=== PATIENT | female | born 1985 ===

== ENCOUNTER 2018-02-27 17:03 | Inpatient (IN) | payer MEDICARE, MEDICAID ==
[~2018-02-27] VITALS: Ht 154.9 cm; Wt 124.3 kg
[~2018-02-27 17:03] MED LIST: AMO500 PO; HYDR-2954 PO; PNV1COMB5
[2018-03-01] MEDS ORDERED: FAMOTIDINE(*) 20MG/50ML PREMIX 50 ML IVPB PRN (01:18)
[2018-03-01] MEDS ORDERED: OXYTOCIN 30 UNIT/D5LR 500 ML 500 ML IV PRN ×2 (01:18→10:28)
[2018-03-01] MEDS: LR(*) 1000 ML BAG 1,000 ML IV SCH ×2 (01:18→06:04)
[2018-03-01] MEDS ORDERED: LIDOCAINE 1% LOCAL 300 MG/30ML INJ PRN (01:20)
[2018-03-01] MEDS ORDERED: LIDOCAINE/SOD BICARB 8.4% SYR SC PRN (01:20)
[2018-03-01] MEDS ORDERED: METOCLOPRAMIDE 10 MG/2 ML SDV IVP PRN (01:20)
[2018-03-01] MEDS ORDERED: cefOXitin/DEX(*) 2GM/50ML PREM 50 ML IVPB PRN (01:20)
[2018-03-01] MEDS ORDERED: fentaNYL CITR 100 MCG/2 ML AMP IVP PRN (01:20)
[2018-03-01] MEDS ORDERED: FLUSH 10 ML SYR IVP PRN ×2 (01:20)
[2018-03-01] MEDS ORDERED: EPIDURAL KEYS XX PRN (01:23)
[2018-03-01] MEDS ORDERED: FENTANYL/ROPIVACAINE 100 ML BAG EPI PRN (01:25)
[2018-03-01] MEDS ORDERED: BUPIVACAINE 0.25% MPF INJ EPI PRN (01:25)
[2018-03-01] MEDS ORDERED: LIDO/EPI 2% MPF 1:200,000 20ML EPI PRN (01:25)
[2018-03-01] MEDS ORDERED: LIDOCAINE/PF 2% 200MG/10ML AMP 200 MG/10 ML AMPUL EPI PRN (01:25)
[2018-03-01] MEDS ORDERED: BUPIVACAINE 0.5% INJ 30ML VIAL EPI PRN (01:25)
[2018-03-01] MEDS ORDERED: fentaNYL CITR 100 MCG/2 ML AMP IT PRN (01:25)
[2018-03-01 01:56] LABS: PLATELET COUNT, AUTOMATED 276 K/uL (150-450)
--- NOTE | 2018-03-01 02:41 | Anesthesia OB Pre-Anes Eval ---
History of Present Illness Anesthesia Start Date: Mar 01, 2018 Anesthesia Start Time: 01:57 OB Anesthesia Diagnosis: gestational hypertension, spontaneous labor Current Complication: gestational hypertention, obesity Result Diagram: 03/01/18 0142 03/01/18 0142 Past Medical History Medical History: obesity Previous Anesthesia: general, epidural Attended Childbirth Classes?: No Hx Anesthesia Reactions: Yes Hx Family Anesthesia Reaction: Yes Past Complications: obesity Home Meds Reported Medications Pnv #116/Iron Fumarate/Fa/Dha (EXPECTA COMBO PACK) 1 Each Combo..pkg 02/20/18 [None] No Conflict Check 10/26/11 Allergies: Coded Allergies: acetaminophen (Verified Allergy, Unknown, 03/01/18) Anesthesia OB ROS Neurological: No migraines/headaches, No seizures, No neuropathy, No other ENT: Denies Tooth caps, Denies Loose teeth, Denies Chipped teeth, Denies Dentures, Denies Bridges, Denies Retainers, Denies Veneers, Denies Implants, Denies Tongue ring, Denies Other Pulmonary: No asthma, No smoker (pks/day/yrs), No other Airway Class: ll Cardiovascular ROS: No edema, No arrhythmia, No other ROS: No Herpes, No STD(s), No Liver Disease, No Renal Disease, No Other Endocrine ROS: No diabetes, No gestational diabetes, No thyroid disorder, No other Musculoskeletal ROS: No low back pain, No low back injury, No scoliosis, No other ASA Classification: 3 Assessment and Plan Anesthesia Plan: CURTIS SADLER CRNA Mar 01, 2018 02:40
--- NOTE | 2018-03-01 02:43 | Procedure Note ---
Anesthetic Placement Note Anesthesia Plan: CSE Permit for Anesthesia Signed: Yes Anesthesia Technique: Patient Sitting Anesthesia Prep: Chlorhexidine Interspace: L 3-4 Local Anesthetic: 1% Lidocaine, 25 Gauge Needle Amount Local - cc's: 3 Anesthesia Needle: 17g Touhshanel/Annamarieff Anesthesia Attempts: 1 (needle redirection x 1) Loss of Resistance: Normal Saline Depth of JULITO (cm): 6.5 Epidural Needle Placement: No CSF, No Blood, No Parasthesia Intrathecal Needle: 27 Gauge Pencan Cerebral Spinal Fluid: Yes, Clear Catheter Insertion (cm): 4.5 Catheter Type: Patino - Spring Wound Epidural Dressing: Tegaderm, Tape Anesthesia Tray: Lot Number ([id number]), Expiration Date (03/04/2019), Reference Number ([id number]) Anesthesia Medications: Intrathecal Dose: mcg Fentanyl (15 mcg), Time (211) Epidural Test Dose: 1.5 Lido/Epi (1:200,000), Dose - mL (5 mL incrementally), Time (213), Negative Epidural Loading Dose: 0.2% Ropivicaine, With Fentanyl 2mcg/ml, Dose - ml (5), Time (226) Epidural Infusion: 0.2% Ropivicaine, With Fentanyl 2mcg/ml, Start Time: (226) Epidural Pump Setting: Bolus Dose - mL (5), Lockout - Minutes (15), Maintenance Rate - mL/hr (6), Maximum per Hour - mL (21) Complications: None CURTIS ABREU CRNA Mar 01, 2018 02:43
[2018-03-01 03:27] VITALS: BP 146/73; Ht 154.9 cm; Wt 124.3 kg
--- NOTE | 2018-03-01 07:21 | Anesthesia Progress Note ---
Progress/Maintenance Anesthesia Note Date: Mar 01, 2018 Anesthesia Note Time: 07:10 Pain Intensity: 0 Pump: On Pump Rate (ML/HR): 6 Sensory Level: t10 Motor Level: Bending Knees-Bilateral Position: Right, Tilt CURTIS ABREU CRNA Mar 01, 2018 07:21
--- NOTE | 2018-03-01 08:38 | History & Physical ---
History of Present Illness Age of Patient: 32 : 4 Para or TPAL: 2 EDC per LMP: Mar 14, 2018 Estimated Gestational Age: 38.1 Chief Complaint Labor induction History of Present Illness Presents was scheduled labor induction secondary to chronic hypertension well controlled and history of preeclampsia on prior pregnancies. She presented ahead of time in spontaneous labor. This uncomplicated otherwise. A pos, GBS negative. Past Medical, Surgical, Family and Obstetric Histories reviewed. Please see ACOG chart. History Allergies: Coded Allergies: acetaminophen (Verified Allergy, Unknown, 03/01/18) Med Rec Home Meds Reported Medications Pnv #116/Iron Fumarate/Fa/Dha (EXPECTA COMBO PACK) 1 Each Combo..pkg 02/20/18 [None] No Conflict Check 10/26/11 Exam General Exam Vital Signs Vital Signs Date Time Temp Pulse Resp B/P (MAP) Pulse Ox O2 Delivery O2 Flow Rate FiO2 03/01/18 03:27 97.7 68 16 146/73 (97) Room Air General Apperance: Alert/Awake/No Acute Distress Neuro: No Gross deficits Eyes: Normal Extraocular Movement & Vison Cardiovascular: Regular Rate and Rhythm Respiratory: No Respiratory Distress Abdomen: Soft, Non-Tender, Non-Distended Integumentary: Skin Intact without Lesions or Rash Psychological: Alert & Oriented X3, Appropriate Mood & Affect Cervical Dialation: 8 Cervical Effacement (%): 100 Cervical Consistency: Soft Cervical Position: Anterior Station: -2 Presentation: Vertex Uterine Contraction Strength: Moderate Fetus Heart Tone Variabilty: Moderate FHT Accelerations: 15X15 FHT Category: I Medical Decision Making Data Points Result Diagram: 03/01/18 0142 03/01/18 014 VTE Prophylasis: Adult Deep Vein Thrombosis/Pulmonary: No Pharmacological Contraindicati: Pt at Low Risk for VTE Mechanical Contraindications: Pt at Low Risk for VTE Assessment and Plan UPHOLSTERY SEWER Plan: Routine Labor/Induct Care Problems: (1) Chronic hypertension affecting Assessment & Plan: No sign of preeclampsia currently. Continue to augment labor as needed. Expecting . (2) 38 weeks gestation of KEVIN VALVERDE MD Mar 01, 2018 08:38
[2018-03-01] MEDS ORDERED: TERBUTALINE SULF 1 MG/ML VIAL SUBQ PRN (10:30)
--- NOTE | 2018-03-01 10:50 | Anesthesia Progress Note ---
Progress/Maintenance Anesthesia Note Date: Mar 01, 2018 Anesthesia Note Time: 10:48 Pain Intensity: 0 Pump: On Pump Rate (ML/HR): 6 Sensory Level: t10 Motor Level: Bending Knees-Bilateral Dilatation: 9 Position: Left, Tilt Assessment and Plan Assessment: Pitocin recently started to augment labor. CURTIS ABREU CRNA Mar 01, 2018 10:50
[2018-03-01] MEDS ORDERED: BENZOCAINE 20% 60 ML BTL TP PRN (11:45)
[2018-03-01] MEDS ORDERED: MAGNESIUM HYDROXIDE* 30ML UDCP PO PRN (11:45)
[2018-03-01] MEDS ORDERED: HYDROmorphone HCL 2 MG TAB PO PRN (11:45)
[2018-03-01] MEDS ORDERED: GLYCERIN/WITCH HAZEL LEAF 1 PK TP PRN (11:45)
[2018-03-01] MEDS ORDERED: LANOLIN OINT 7 GM TUBE TP PRN (11:45)
[2018-03-01] MEDS ORDERED: HYDROCORTISONE 2.5% CR 30GM TB PR PRN (11:45)
--- NOTE | 2018-03-01 11:53 | OB Delivery Note ---
Delivery Note Vaginal Delivery Type: Spont. Vaginal Delivery Delivery Date: Mar 01, 2018 Delivery Time: 11:49 Estimated Gestational Age(wks): 38 Delivery Anesthesia: Epidural Sex: Male Infant Weight (gms): [address] Apgars: 1 Minute (9), 5 Minute (9) Repair Needed: Laceration, 1st Degree Estimated Blood Loss: 100 Notes: Pt complete and +2 upon arrival. Pt assembled in delivery position. Over next contraction with pushing, baby's head delivered in JAZ position over first degree laceration. Shoulders delivered spontaneously. Placenta delivered intact and spontaneous. Laceration repaired with 2-0 chromic without difficulty. No complications. [address] Drive in Attendence: No Copies to: KEVIN VALVERDE MD ; KEVIN VALVERDE MD Mar 01, 2018 11:53
[2018-03-01 12:24] VITALS: BP 140/73
[2018-03-01] MEDS: IBUPROFEN 800 MG TAB PO SCH ×2 (12:52→19:54)
[2018-03-01 13:33] VITALS: BP 138/73
[2018-03-01 16:35] VITALS: BP 125/61
[2018-03-01] MEDS: DOCUSATE CALCIUM 240 MG CAP PO SCH (19:54)
[2018-03-01 20:00] VITALS: BP 121/84
[2018-03-02 00:30] VITALS: BP 128/73
[2018-03-02] MEDS: IBUPROFEN 800 MG TAB PO SCH ×2 (03:58→12:00)
[2018-03-02 04:00] VITALS: BP 118/61
--- NOTE | 2018-03-02 06:38 | Anesthesia Progress Note ---
Progress/Maintenance Pump: Off Assessment and Plan Anesthesia Stop Day: Mar 01, 2018 Anesthesia Stop Time: 11:31 CURTIS ABREU CRNA Mar 02, 2018 06:38
[2018-03-02 07:32] VITALS: BP 127/82
--- NOTE | 2018-03-02 08:40 | Anesthesia Post Eval Note ---
Anesthesia Post Eval Note Vital Signs Date Time Temp Pulse Resp B/P (MAP) Pulse Ox O2 Delivery O2 Flow Rate FiO2 03/02/18 07:32 97.2 70 18 127/82 (97) Room Air 03/01/18 12:24 94 Pt able to participate in Eval: Yes Cardiovascular Status: Satisfactory Respiratory Status: Satisfactory Pain Managment: Satisfactory PO Nausea/Vomiting: Satisfactory Temperature Management: Satisfactory Mental Status: Satisfactory, Alert, Oriented X3 Post-Op Hydration Status: Satisfactory, Tolerating PO Well, Voiding w/o Difficulty Anesthesia Tolerance: no anesthesia concerns CURTIS ABREU HVAC PROJECT ENGINEER Mar 02, 2018 08:40
[2018-03-02] MEDS: DOCUSATE CALCIUM 240 MG CAP PO SCH (09:00)
[2018-03-02 12:40] VITALS: BP 133/87
--- NOTE | 2018-03-02 16:40 | OB/GYN Progress Note ---
OB Subjective Progress Notes Subjective Doing well; no pain or heavy bleeding. Voiding well. GI: NEG Nausea : Voiding Well OB Objective Physical Exam Vital Signs Date Time Temp Pulse Resp B/P (MAP) Pulse Ox O2 Delivery O2 Flow Rate FiO2 03/02/18 12:40 97.3 95 18 133/87 (102) 03/02/18 07:32 Room Air 03/01/18 12:24 94 Intake and Output 03/02/18 07:00 Intake Total 2200 ml Output Total 225 ml Balance 1975 ml IV Total 2200 ml Output Urine Total 150 ml Emesis 75 ml # Voids 4 General Appearance: Alert/Awake/No Acute Distress Neurological: No Gross deficits Eyes: Normal Extraocular Movement & Vison Cardiovascular: Normal Rhythm & Peripheral Pulses Respiratory: No Respiratory Distress Abdomen: Soft, Non-Tender, Non-Distended, Fundus Firm, Non-Tender Integumentary: Skin Intact without Lesions or Rash Psychological: Alert & Oriented X3, Appropriate Mood & Affect Result Diagram: 03/02/18 0510 03/01/18 0142 Assessment and Plan REGIONAL PROPERTY MANAGER Plan: Discharge Home Today Problems: (1) Chronic hypertension affecting (2) 38 weeks gestation of KEVIN VALVERDE MD Mar 02, 2018 16:40
[2018-03-02] MEDS ORDERED: IBUP800T37 PO (16:41)
--- NOTE | 2018-03-02 16:42 | OB/GYN Discharge Summary ---
Discharge Summary Reason for Hosp/Final Diag: (1) Chronic hypertension affecting (2) 38 weeks gestation of [place] Vital Signs Vital Signs Date Time Temp Pulse Resp B/P (MAP) Pulse Ox O2 Delivery O2 Flow Rate FiO2 03/02/18 12:40 97.3 95 18 133/87 (102) 03/02/18 07:32 Room Air 03/01/18 12:24 94 Weight (Pounds): 274 Result Diagram: 03/02/18 0510 03/01/18 0142 Condition: Improved Discharge: Home, Self Chcf Meds Reported Medications Pnv #116/Iron Fumarate/Fa/Dha (EXPECTA COMBO PACK) 1 Each Combo..pkg 02/20/18 [None] No Conflict Check 10/26/11 Follow up Referrals: IND[employer]RI[employer] G[employer]AGE SERVICER - In 6 Weeks @ [facility] with KEVIN LANDEROS MD Follow up with: Dr. Landeros [phone] Follow up in: 6 wks PP or PO Discharge Diet: As Tolerates Discharge Activity: As Tolerates, No Heavy Lifting x 6 wks, No Heavy Lifting > 10lb, Pelvic Rest Copies to: KEVIN LANDEROS MD ; KEVIN LANDEROS MD Mar 02, 2018 16:42
[2018-03-03] MEDS ORDERED: MEASLES,MUMP,RUBELLA VAC 0.5ML SUBQ ONE (09:00)
[2018-03-03] MEDS ORDERED: DIPHTH/TETANUS/ACEL. PERTUSSIS IM ONLY ONE (09:00)
[2018-03-03] MEDS ORDERED: INFLUENZA VIRUS VAC 0.5ML SYR IM ONLY ONE (09:00)
== END 2018-03-02 17:00 | disposition home or self-care (01) | DRG 774 ==
LOC: OB 03-01 00:24
PROVIDERS: ADMIT Obstetrics & Gynecology; ATTEND Obstetrics & Gynecology
PROC: 10E0XZZ Delivery of Products of Conception, External Approach (ICD-10-PCS; principal; 2018-03-01)
PROC: 0HQ9XZZ Repair Perineum Skin, External Approach (ICD-10-PCS; 2018-03-01)
DX: O10.92 Unspecified pre-existing hypertension complicating childbirth (principal); Z68.43 Body mass index [BMI] 50.0-59.9, adult; O70.0 First degree perineal laceration during delivery; O99.214 Obesity complicating childbirth; E66.9 Obesity, unspecified; Z88.8 Allergy status to other drugs, medicaments and biological substances; Z3A.38 38 weeks gestation of pregnancy; Z37.0 Single live birth
CPT/HCPCS: 36415; 82040; 82247; 82310; 82374; 82435; 82565; 82570; 82947; 83615; 84075; 84132; 84155; 84156; 84295; 84450; 84460; 84520; 84550; 85025; 85027; 86703; 86850; 86900; 86901; J2590; J3010; J7120

== ENCOUNTER 2018-03-04 19:57 | Emergency (ER) | payer MEDICAID, MEDICARE ==
[2018-03-01 03:27] VITALS: Wt 113.4 kg
[~2018-03-04 19:57] MED LIST changes: +IBUP800T37 PO
--- NOTE | 2018-03-04 20:06 | ER Report ---
History and Physical Time Seen By MD: 20:05 HPI/ROS CHIEF COMPLAINT: Leg swelling HISTORY OF PRESENT ILLNESS: 32-year-old female presents to the ER complaining of lower extremity edema. She is concerned that she may be having some eclampsia symptoms. She was preeclamptic and had hypertension throughout her . She delivered 2 days ago, normal spontaneous vaginal delivery. Patient denies headache, blurry vision, chest pain, shortness of breath. She notes some edema that spent coming and going in her right foot and lower extremities. She is breast-feeding her infant. REVIEW OF SYSTEMS: Respiratory: No cough, no dyspnea. Cardiovascular: No chest pain, no palpitations. Gastrointestinal: No vomiting, no abdominal pain. Musculoskeletal: No back pain. Allergies: Coded Allergies: acetaminophen (Verified Allergy, Unknown, 03/04/18) Home Meds Active Scripts Labetalol Hcl (LABETALOL HCL) 100 Mg Tablet, 100 MG PO BID for hypertension of , #30 Prov:YOUSUF CAMPBELL DO 03/04/18 Ibuprofen (IBUPROFEN) 800 Mg Tablet, 800 MG PO Q8H PRN for PAIN, #30 TAB 0 Refills Prov:KEVIN LANDEROS MD 03/02/18 Reported Medications Pnv #116/Iron Fumarate/Fa/Dha (EXPECTA COMBO PACK) 1 Each Combo..pkg 02/20/18 [None] No Conflict Check 10/26/11 Reviewed Nurses Notes: Yes Old Medical Records Reviewed: Yes Hx Smoking: Yes ("OFF AND ON") Hx Substance Use Disorder: No Hx Alcohol Use: No Constitutional Vital Sign - Last 24 Hours 03/04/18 03/04/18 03/04/18 03/04/18 20:03 20:07 20:12 20:27 Temp 98.0 Pulse 68 59 60 Resp 22 B/P (MAP) 163/93 163/93 (116) Pulse Ox 96 97 96 O2 Delivery Room Air 03/04/18 03/04/18 03/04/18 03/04/18 20:34 20:42 20:57 20:58 Pulse 62 73 B/P (MAP) 124/75 (91) 127/77 (94) Pulse Ox 96 96 Physical Exam General Appearance: The patient is alert, has no immediate need for airway protection and no current signs of toxicity. Vital signs stable, blood pressure elevated 163/93 Eyes: Pupils equal and round no injection. Respiratory: Chest is non tender, lungs are clear to auscultation. Cardiac: regular rate and rhythm Gastrointestinal: Abdomen is soft and non tender, no masses, bowel sounds normal. Musculoskeletal: Neck: Neck is supple and non tender. Extremities have full range of motion and are non tender. Skin: No rashes or lesions. DIFFERENTIAL DIAGNOSIS: After history and physical exam differential diagnosis was considered for hypertension, post eclampsia, UTI, anxiety, Medical Decision Making Data Points Result Diagram: 03/04/18202303/04/182023 Laboratory Hematology Test 03/04/18 20:03 03/04/18 20:24 Urine Color Straw Urine Clarity Clear Urine pH 7.0 pH (4.8-9.5) Urine Specific [place] 1.009 Urine Protein Negative mg/dL (NEGATIVE) Urine Glucose (UA) Negative mg/dL (NEGATIVE) Urine Ketones Negative mg/dL (NEGATIVE) Urine Blood Large (NEGATIVE) Urine Nitrite Negative (NEGATIVE) Urine Bilirubin Negative (NEGATIVE) Urine Urobilinogen Negative mg/dL (0.2-1.9) Urine Leukocyte Esterase Moderate (NEGATIVE) Urine RBC 36 /HPF (0-2/HPF) Urine WBC 17 /HPF (0-5/HPF) Urine Squamous Epithelial Cells Many /LPF (</=FEW) Urine Amorphous Crystals Few /HPF Urine Bacteria Negative /HPF (NONE-FEW) Urine Mucus Few /HPF (NONE-FEW) Red Blood Count 3.96 M/uL (4.17-5.56) Mean Corpuscular Volume 92.5 fL (80.0-96.0) Mean Corpuscular Hemoglobin 31.5 pg (26.0-33.0) Mean Corpuscular Hemoglobin Concent 34.0 g/dL (32.0-36.0) Red Cell Distribution Width 14.3 % (11.5-14.5) Mean Platelet Volume 7.8 fL (7.2-11.1) Neutrophils (%) (Auto) 71.5 % (39.4-72.5) Lymphocytes (%) (Auto) 19.9 % (17.6-49.6) Monocytes (%) (Auto) 5.4 % (4.1-12.4) Eosinophils (%) (Auto) 2.8 % (0.4-6.7) Basophils (%) (Auto) 0.4 % (0.3-1.4) Nucleated RBC Relative Count (auto) 0.0 /100WBC Neutrophils # (Auto) 9.6 K/uL (2.0-7.4) Lymphocytes # (Auto) 2.7 K/uL (1.3-3.6) Monocytes # (Auto) 0.7 K/uL (0.3-1.0) Eosinophils # (Auto) 0.4 K/uL (0.0-0.5) Basophils # (Auto) 0.0 K/uL (0.0-0.1) Nucleated RBC Absolute Count (auto) 0.01 K/uL Prothrombin Time 12.1 seconds (12.0-14.4) Prothromb Time International Ratio 0.89 Activated Partial Thromboplast Time 23 seconds (23-35) Sodium Level 138 mmol/L (137-145) Potassium Level 4.0 mmol/L (3.5-5.0) Chloride Level 106 mmol/L (98-107) Carbon Dioxide Level 27 mmol/L (22-31) Blood Urea Nitrogen 11 mg/dl (7-18) Creatinine 0.80 mg/dl (0.52-1.04) Glomerular Filtration Rate Calc > 60.0 Random Glucose 98 mg/dl (75-110) Calcium Level 8.5 mg/dl (8.4-10.2) Total Bilirubin 0.4 mg/dl (0.2-1.3) Aspartate Amino Transf (AST/SGOT) 36 U/L (0-35) Alanine Aminotransferase (ALT/SGPT) 42 U/L (0-56) Alkaline Phosphatase 91 U/L (0-126) Total Protein 6.2 g/dl (6.3-8.2) Albumin 3.1 g/dl (3.5-5.0) Chemistry Test 03/04/18 20:03 03/04/18 20:24 Urine Color Straw Urine Clarity Clear Urine pH 7.0 pH (4.8-9.5) Urine Specific Sum[place] 1.009 Urine Protein Negative mg/dL (NEGATIVE) Urine Glucose (UA) Negative mg/dL (NEGATIVE) Urine Ketones Negative mg/dL (NEGATIVE) Urine Blood Large (NEGATIVE) Urine Nitrite Negative (NEGATIVE) Urine Bilirubin Negative (NEGATIVE) Urine Urobilinogen Negative mg/dL (0.2-1.9) Urine Leukocyte Esterase Moderate (NEGATIVE) Urine RBC 36 /HPF (0-2/HPF) Urine WBC 17 /HPF (0-5/HPF) Urine Squamous Epithelial Cells Many /LPF (</=FEW) Urine Amorphous Crystals Few /HPF Urine Bacteria Negative /HPF (NONE-FEW) Urine Mucus Few /HPF (NONE-FEW) White Blood Count 13.4 k/uL (4.5-11.0) Red Blood Count 3.96 M/uL (4.17-5.56) Hemoglobin 12.5 g/dL (12.0-16.0) Hematocrit 36.6 % (34.0-47.0) Mean Corpuscular Volume 92.5 fL (80.0-96.0) Mean Corpuscular Hemoglobin 31.5 pg (26.0-33.0) Mean Corpuscular Hemoglobin Concent 34.0 g/dL (32.0-36.0) Red Cell Distribution Width 14.3 % (11.5-14.5) Platelet Count 280 K/uL (150-450) Mean Platelet Volume 7.8 fL (7.2-11.1) Neutrophils (%) (Auto) 71.5 % (39.4-72.5) Lymphocytes (%) (Auto) 19.9 % (17.6-49.6) Monocytes (%) (Auto) 5.4 % (4.1-12.4) Eosinophils (%) (Auto) 2.8 % (0.4-6.7) Basophils (%) (Auto) 0.4 % (0.3-1.4) Nucleated RBC Relative Count (auto) 0.0 /100WBC Neutrophils # (Auto) 9.6 K/uL (2.0-7.4) Lymphocytes # (Auto) 2.7 K/uL (1.3-3.6) Monocytes # (Auto) 0.7 K/uL (0.3-1.0) Eosinophils # (Auto) 0.4 K/uL (0.0-0.5) Basophils # (Auto) 0.0 K/uL (0.0-0.1) Nucleated RBC Absolute Count (auto) 0.01 K/uL Prothrombin Time 12.1 seconds (12.0-14.4) Prothromb Time International Ratio 0.89 Activated Partial Thromboplast Time 23 seconds (23-35) Glomerular Filtration Rate Calc > 60.0 Calcium Level 8.5 mg/dl (8.4-10.2) Total Bilirubin 0.4 mg/dl (0.2-1.3) Aspartate Amino Transf (AST/SGOT) 36 U/L (0-35) Alanine Aminotransferase (ALT/SGPT) 42 U/L (0-56) Alkaline Phosphatase 91 U/L (0-126) Total Protein 6.2 g/dl (6.3-8.2) Albumin 3.1 g/dl (3.5-5.0) Coagulation Test 03/04/18 20:24 Prothrombin Time 12.1 seconds Prothromb Time International Ratio 0.89 Activated Partial Thromboplast Time 23 seconds Urinalysis Test 03/04/18 20:03 Urine Color Straw Urine Clarity Clear Urine pH 7.0 pH (4.8-9.5) Urine Specific [place] 1.009 Urine Protein Negative mg/dL (NEGATIVE) Urine Glucose (UA) Negative mg/dL (NEGATIVE) Urine Ketones Negative mg/dL (NEGATIVE) Urine Blood Large (NEGATIVE) Urine Nitrite Negative (NEGATIVE) Urine Bilirubin Negative (NEGATIVE) Urine Urobilinogen Negative mg/dL (0.2-1.9) Urine Leukocyte Esterase Moderate (NEGATIVE) Urine RBC 36 /HPF (0-2/HPF) Urine WBC 17 /HPF (0-5/HPF) Urine Squamous Epithelial Cells Many /LPF (</=FEW) Urine Amorphous Crystals Few /HPF Urine Bacteria Negative /HPF (NONE-FEW) Urine Mucus Few /HPF (NONE-FEW) ED Course/Re-evaluation ED Course Patient was admitted to an examination room. H&P was done. The differential diagnoses was considered. On clinical examination. Patient has elevated blood pressure. Her urinalysis shows no protein. Her laboratory studies are otherwise unremarkable. Her case is discussed with Dr. Landeros HEALTH INFORMATION CODER who delivered the patient. He advises labetalol 100 mg by mouth twice a day and follow-up in 2 days in the office for blood pressure check. Patient was administered labetalol 100 mg by mouth here in the ER. She was discharged with a prescription and advised to follow-up with Dr. Landeros. 03/04/2018 8:54:16 pm case discussed with Dr. Landeros who advises labetalol 1 00 mg by mouth twice a day and follow-up in 2 days. Decision to Disposition Date: Mar 04, 2018 Decision to Disposition Time: 20:49 Depart Departure Latest Vital Signs Vital Signs Date Time Temp Pulse Resp B/P (MAP) Pulse Ox O2 Delivery O2 Flow Rate FiO2 03/04/18 20:58 127/77 (94) 03/04/18 20:57 73 96 03/04/18 20:03 98.0 22 Room Air Impression: Primary Impression: Chronic hypertension affecting Additional Impressions: 38 weeks gestation of Lower extremity edema Condition: Improved Disposition: HOME OR SELF-CARE Referrals: KEVIN LANDEROS MD (PCP) New Scripts Labetalol Hcl (LABETALOL HCL) 100 Mg Tablet 100 MG PO BID for hypertension of , #30 Prov: YOUSUF CAMPBELL DO 03/04/18 Patient Instructions: Hypertension (ED) Additional Instructions: Follow-up with Dr. Landeros in 2 days on Monday Problem Qualifiers YOUSUF CAMPBELL DO Mar 04, 2018 20:06
[2018-03-04 20:33] LABS: PLATELET COUNT, AUTOMATED 280 K/uL (150-450)
[2018-03-04 20:50] LABS: INR 0.89
[2018-03-04] MEDS ORDERED: LABE100T2 PO (20:55)
[2018-03-04 20:58] VITALS: BP 127/77
[2018-03-04] MEDS ORDERED: LABETALOL HCL 100 MG TAB PO ONE (21:00)
== END 2018-03-04 21:00 | disposition home or self-care (01) ==
LOC: ER 20:14
DX: I10 Essential (primary) hypertension (principal); M79.89 Other specified soft tissue disorders
CPT/HCPCS: 36415; 81001; 82040; 82247; 82310; 82374; 82435; 82565; 82947; 84075; 84132; 84155; 84295; 84450; 84460; 84520; 85025; 85610; 85730; 99283